=== PATIENT | male | born 1960 | race Caucasian/White ===

== ENCOUNTER → 2017-03-12 | Outpatient (CLI) | payer OTHER ==
--- NOTE | 2017-03-12 15:53 | DIAGNOSTIC IMAGING REPORT ---
L HAND MIN 3 VIEWS ROUTINE HISTORY: 56 years-old Male L AHND ARTHRITIS chronic left hand pain COMPARISON: None available TECHNIQUE: 3 views of the left hand FINDINGS: Mild radiocarpal, triscaphe, first carpometacarpal and multidigit interphalangeal degenerative changes are noted with mild periarticular osteopenia. There is no acute fracture or dislocation. Soft tissues are unremarkable without opaque foreign body. IMPRESSION: 1. No acute fracture or dislocation. 2. Mild degenerative changes as above The above report was generated using voice recognition software. It may contain grammatical, syntax or spelling errors. Electronically signed by: Rosas Arora M.D. 03/12/2017 3:52 PM Dictated Date/Time: 03/12/2017 3:50 PM
== END | disposition home or self-care (01) ==
LOC: C.RAD1850 15:41
PROVIDERS: ATTEND Internal Medicine
DX: M19.042 Primary osteoarthritis, left hand (principal)